=== PATIENT | female | born 1950 | race Two or more races ===

== ENCOUNTER 2017-12-10 08:31 | Outpatient (CLI) | payer OTHER | END 2017-12-10 08:39 | disposition home or self-care (01) | LOC: SONOGRAMA 08:31 | DX: N60.11 Diffuse cystic mastopathy of right breast (principal); N60.12 Diffuse cystic mastopathy of left breast; N63.13 Unspecified lump in the right breast, lower outer quadrant ==

== ENCOUNTER 2018-01-11 15:15 | Emergency (ER) | payer OTHER ==
[~2018-01-11] VITALS: Ht 165.1 cm; Wt 66.2 kg
[2018-01-11] MEDS ORDERED: COZAAR25 MG PO (15:50)
[2018-01-11] MEDS ORDERED: IPRATROPIU0.2 MG/1 M (15:51)
[2018-01-11] MEDS ORDERED: AZELASTINE137 MCG/0. (15:51)
[2018-01-11] MEDS ORDERED: SYMBICORT 16010.2 GM PO (15:51)
[2018-01-11] MEDS ORDERED: XANAX1 MG PO (15:52)
[2018-01-11] MEDS ORDERED: SINGULAIR10 MG PO (15:53)
[2018-01-11] MEDS ORDERED: TEMAZEPAM30 MG PO (15:53)
[2018-01-11] MEDS ORDERED: TRAMADOL HCL50 MG PO (15:54)
[2018-01-11] MEDS ORDERED: BENZONATATE100 MG PO (15:54)
[2018-01-11] MEDS ORDERED: HUMALOG100 UNIT/1 (15:54)
[2018-01-11] MEDS ORDERED: AUTOPEN1 EACH (15:55)
== END 2018-01-11 21:29 | disposition home or self-care (01) ==
LOC: ER 15:15
DX: M51.27 Other intervertebral disc displacement, lumbosacral region (principal); M54.5 Low back pain